=== PATIENT | female | born 1965 | race Caucasian/White ===

== ENCOUNTER → 2018-02-05 12:32 | Outpatient (CLI) | payer BC | END | disposition home or self-care (01) | LOC: D.LAB 12:32 | DX: M54.16 Radiculopathy, lumbar region (principal) ==

== ENCOUNTER → 2019-01-05 08:01 | Outpatient (CLI) | payer BC ==
[~2019-01-05 08:01] MED LIST: CLARITIN 10 MG10 MG PO; DUEXIS 800-26.1 EACH PO; ESTRACE1 MG PO; HYDROCODONE-A1 UDTA2 PO; LISINOPRIL-HCT1 EAC7 PO; LYRICA75 MG PO; OMEPRAZOLE40 MG PO; XANAX1 MG PO
[2019-01-17 11:50] VITALS: BMI 35.6
== END | disposition home or self-care (01) ==
LOC: D.HCCARDIO 08:01
PROVIDERS: ATTEND Internal Medicine Interventional Cardiology
DX: I20.9 Angina pectoris, unspecified (principal)

== ENCOUNTER → 2019-01-08 13:16 | Outpatient (CLI) | payer BC ==
--- NOTE | 2019-01-10 11:08 | EC ---
PATIENT:REINA ROMERO DATE OF SERVICE: 01/08/19 SEX: F MEDICAL RECORD: [id number] DATE OF : 65 LOCATION:D.[facility] AGE OF PATIENT: 53 ADMISSION DATE: 01/08/19 REFERRING PHYSICIAN: INTERPRETING PHYSICIAN: DRISS HONG MD ECHOCARDIOGRAM REPORT ECHO CHARGES 4 ECHO COMPLETE Date: 01/08/19 CLINICAL DIAGNOSIS: HEART MURMUR ECHOCARDIOGRAPHIC MEASUREMENTS (adult normal given) AC root (d.<3.7cm) 3.5 cm LV Septum d (<1.2 cm> 1.1 cm Valve Excursion 1.8 cm LV Septum (systole) 1.2 cm Left Atria (s.<4.0cm> 4.1 cm LVPW d(<1.2cm) 1.5 cm RV (d.<2.3cm) 3.4 cm LVPW (sytole) 1.5 cm LV diastole(<5.6CM) 5.6 cm MV E-F(>70mm/sec) cm LV systole 4.3 cm LVOT Diameter 2.1 cm MV exc.(>10mm) 1.5 cm Est.ejection fraction (50-75%) % DOPPLER: LVIT cm/sec A 94.0 cm/sec E 73.0 cm/sec LA cm/sec RVSP 25 mmHg LVOT 128 cm/sec AOP1/2T m/s Asc. Ao 151 cm/sec RVOT 72 cm/sec RA cm/sec PA 113 cm/sec AV Gradient Peak 9.14 mmHg AV Mean 4.83 mmHg AV Area 2.5 cm MV Gradient Peak 3.62 mmHg MV Mean 1.56 mmHg MV Area cm COMMENTS: Photography Spotter: 2 BARBARA LOPEZ Special Education Math Teacher: 3 Dr. Wheat TAPE# PACS Pericardial Effusion N DATE OF SERVICE: Adequate 2-D, color-flow imaging, spectral Doppler, and M-mode. No LVH. LV internal dimension was normal. Wall motion is normal. EF is greater than or equal to 55%. Aortic valve is tricuspid. No evidence of stenosis by Doppler interrogation. Left atrium is mildly dilated at 4.1 cm. Mitral valve shows no prolapse. Trace MR. Right-sided chambers are grossly normal. Trace TR. ECHOCARDIOGRAM REPORT [id number] REINA ROMERO TRANSINT:[id number] Voice Confirmation ID: [id number] DOCUMENT ID: [id number] DRISS HONG MD at 1108 CC: [id number] DICTATION DATE: 01/09/19 144 EMPLOYMENT TRAINING SPECIALIST: 01/09/19 2343 DEP CLI 01/08/19 [place] [id number] [place] [id number]
--- NOTE | 2019-01-11 13:30 | EC ---
PATIENT:REINA ROMERO DATE OF SERVICE: 01/08/19 SEX: F MEDICAL RECORD: [id number] DATE OF : 65 LOCATION:D.[facility] AGE OF PATIENT: 53 ADMISSION DATE: 01/08/19 REFERRING PHYSICIAN: INTERPRETING PHYSICIAN: DANAE RODRIGUEZ MD ECHOCARDIOGRAM REPORT ECHO CHARGES 4 ECHO COMPLETE Date: 01/08/19 CLINICAL DIAGNOSIS: HEART MURMUR ECHOCARDIOGRAPHIC MEASUREMENTS (adult normal given) AC root (d.<3.7cm) 3.5 cm LV Septum d (<1.2 cm> 1.1 cm Valve Excursion 1.8 cm LV Septum (systole) 1.2 cm Left Atria (s.<4.0cm> 4.1 cm LVPW d(<1.2cm) 1.5 cm RV (d.<2.3cm) 3.4 cm LVPW (sytole) 1.5 cm LV diastole(<5.6CM) 5.6 cm MV E-F(>70mm/sec) cm LV systole 4.3 cm LVOT Diameter 2.1 cm MV exc.(>10mm) 1.5 cm Est.ejection fraction (50-75%) % DOPPLER: LVIT cm/sec A 94.0 cm/sec E 73.0 cm/sec LA cm/sec RVSP 25 mmHg LVOT 128 cm/sec AOP1/2T m/s Asc. Ao 151 cm/sec RVOT 72 cm/sec RA cm/sec PA 113 cm/sec AV Gradient Peak 9.14 mmHg AV Mean 4.83 mmHg AV Area 2.5 cm MV Gradient Peak 3.62 mmHg MV Mean 1.56 mmHg MV Area cm COMMENTS: Hearing Therapist: 2 BARBARA LOPEZ Armored Car Guard: 3 Dr. Wheat TAPE# PACS Pericardial Effusion N DATE OF SERVICE: PROCEDURE: Echocardiogram. FINDINGS: 1. Left ventricular chamber size is within normal limits. Left ventricular systolic function is normal at 65%. 2. Left atrium is upper limits of normal at 4.0 cm. Right atrium and right ventricular chamber sizes are mildly dilated. 3. Valvular structures have normal structure and motion. ECHOCARDIOGRAM REPORT [id number] REINA ROMERO 4. Doppler interrogation reveals only trace tricuspid regurgitation, no other valvular insufficiency or stenosis. Pulmonary systolic pressure is estimated at 23 mmHg. 5. No evidence of pericardial effusion or left ventricular thrombus. TRANSINT:[id number] Voice Confirmation ID: [id number] DOCUMENT ID: [id number] DANAE RODRIGUEZ MD at 1330 CC: [id number] DICTATION DATE: 01/09/19 1205 BASKET PATCHER: 01/09/19 1315 DEP CLI 01/08/19 [facility] [address] [place] [id number]
[2019-01-17 11:50] VITALS: BMI 35.6
== END | disposition home or self-care (01) ==
LOC: D.HCCECHO 13:16
PROVIDERS: ATTEND Internal Medicine Interventional Cardiology
DX: R01.1 Cardiac murmur, unspecified (principal)

== ENCOUNTER 2019-01-17 10:53 | Outpatient (CLI) | payer MEDICARE ==
[~2019-01-17] VITALS: Ht 167.6 cm; Wt 100.0 kg
--- NOTE | ~2019-01-17 | HEMODYNAMI ---
PATIENT:REINA ROMERO MEDICAL RECORD: [id number] : 65 LOCATION:[facility] ADMISSION DATE: 01/17/19 Generatedon:01/17/201915:03 Patient name: REINA ROMERO Patient #: [id number] SSN: [id number] : 1965 Date of study: 01/17/2019 Page: Of Hemodynamic Procedure Report Patient Data Patient Demographics Procedure consent was obtained First Name: REINA Gender: Female Last Name: NICK : 1965 Middle Initial: MICHAEL Age: 53 year(s) Patient #: [id number] Race: SSN: [id number] Additional ID: [id number] Contact details Address: [address] [place] [address] m State: [place] City: [facility] Zip code: [address] Past Medical History Allergies Allergen Reaction Date Comments Reported Other allergy 01/17/2019 GUAIFENESIN/CODEINE Admission Admission Data Admission Date: 01/17/2019 Admission Time: 10:53 Arrival Date: 01/17/2019 Arrival Time: 0:00 Admit Source: Other Insurance Payor: Private health insurance [facility] #: [id number] Height (in.): 66.14 BSA: 2.09 (m2) Height (cm.): 168 BMI: 35.43 (kg/m2) Weight (lbs.): 220.46 Weight (kg.): 100 Lab Results Lab Result Date: 01/17/2019 Lab Result Time: 0:00 Biochemistry Name Units Result Min Max BUN mg/dl 18 --(---*)-- 7 18 Creatinine mg/dl 0.8 --(-*--)-- 0.6 1.3 eGFR ml/min 79.93890 *-(----)-- 90 120 NONAFRICAN CBC Name Units Result Min Max Hemoglobin g/dl 12.7 -*(----)-- 13.5 17.5 Procedure Procedure Types Cath Procedure Diagnostic Procedure [facility] w/Coron[facility] Procedure Description Procedure Date Procedure Date: 01/17/2019 Procedure Start Time: 14:48 Procedure End Time: 15:01 Procedure Staff Name Function Andrew Mike MD Performing Physician Claudia Boswell RT Monitor Nuvia Clinton RT Monitor Lupe Morley RT Scrub Zane Garcia RN Nurse Procedure Data Cath Procedure Fluoroscopy Diagnostic fluoroscopy Total fluoroscopy Time: 3 time: 3 min min Diagnostic fluoroscopy Total fluoroscopy dose: 454 dose: 454 mGy mGy Contrast Material Contrast Material Type Amount (ml) Isovue 300 82 Entry Location Entry Primary Successful Side Size Upsize Upsize Entry Closure Choi ccessful Closure Location (Fr) 1 (Fr) 2 (Fr) Remarks Device Remarks Radial Right 6 Fr Mechanical artery Short Compression Estimated blood loss: 5 ml Diagnostic catheters Device Type Used For End Catheter Placement DIAGNOSTIC Young Harris 110cm 5 Procedure Fr catheter ([id number]) Procedure Complications No complications Procedure Medications Medication Administration Route Dosage 0.9% NaCl I.V. 100 ml/hr Oxygen etCO2 Nasal cannula 2 l/min Heparin Flush Bag added to field 2 bags (1000units/500ml NS) Lidocaine 2% added to field 20 Radial Cocktail added to field 1 syringe (Verapamil 2mg/Nitro 400mcg/Heparin 1500units) Benadryl I.V. 50 mg Versed I.V. 2 mg Fentanyl I.V. 100 mcg Radial Cocktail I.A. 1 syringe (Verapamil 2mg/Nitro 400mcg/Heparin 1500units) Hemodynamics Rest BSA: 2.09 (m2) HGB: 12.7 (g/dl) O2 Consumption: Estimated: 193.7 (ml/min) O2 Con sumption indexed: Estimated:92.68 (ml/min/m) Heart Rate: 59 (bpm) Pressure Samples Time Site Value (mmHg) Purpose Heart Use Rate(bpm) 14:52 LV 104/8,10 Snapshot 73 Gradients Valve Time Site Site Mean SEP/DFP Peak To Heart Use 1 2 (mmHg) (sec/min) Peak Rate (mmHg) (bpm) Aortic 14:52 LV AO 80 Snapshots Pre Cath Intra NCS Post Cath Vital Signs Time Heart Resp SPO2 etCO2 NIBP (mmHg) Rhythm Pain Sedation Rate (ipm) (%) (mmHg) Status Level (bpm) 14:37:13 61 25 99 0 130/75(110) NSR 0 (11) 10(A) , No pain 14:41:31 64 18 97 0 130/70(101) NSR 0 (11) 10(A) , No pain 14:45:49 59 13 95 46.6 125/63(94) NSR 0 (11) 10(A) , No pain 14:50:05 61 19 99 48.1 120/63(89) NSR 0 (11) 9(A) , No pain 14:54:19 69 11 96 45.8 124/65(92) NSR 0 (11) 9(A) , No pain 14:58:33 68 14 96 45.1 114/60(87) NSR 0 (11) 9(A) , No pain Medications Time Medication Route Dose Verified Delivered Reason Notes Effectiveness by by 14:38:15 0.9% NaCl I.V. 100 Zane Zane Per ml/hr Jose Garcia physician RN RN 14:38:24 Oxygen etCO2 2 l/min Zane Zane for low 02 Nasal Lorigan Jose sats cannula RN RN 14:38:35 Heparin Flush added 2 bags Zane Zane used for Bag to Jose Garcia procedure (1000units/500ml field RN RN NS) 14:38:49 Lidocaine 2% added 20ml Zane Zane for local to vial Shahrzadigan Jose anesthetic RN RN 14:39:02 Radial Cocktail added 1 Zane Zane used for (Verapamil to syringe Shahrzadigan Shahrzadigan procedure 2mg/Nitro RN RN 400mcg/Heparin 1500units) 14:47:23 Benadryl I.V. 50 mg Zane Zane Per Jose Garcia physician RN RN 14:48:56 Versed I.V. 2 mg Zane Zane for sedation Jose Garcia RN RN 14:49:05 Fentanyl I.V. 100 mcg Zane Zane for sedation Jose Garcia RN RN 14:51:30 Radial Cocktail I.A. 1 Zane Andrew for (Verapamil syringe Shahrzadigan Rashid vasodilation 2mg/Nitro DEVAUGHN HALL 400mcg/Heparin 1500units) Procedure Log Time Note 14:24:26 Procedure Status Elective Heart Cath (OP). 14:24:29 Zane Garcia RN sent for patient. Start room use. 14:24:31 Time tracking: Regular hours (M-F 7:00 - 5:00) 14:24:36 Plan of Care:Hemodynamics will remain stable., Cardiac rhythm will remain stable., Comfort level will be maintained., Respiratory function will remain adequate., Patient/ family verbilizes understanding of procedure., Procedure tolerated without complication., Recovers from procedure without complications.. 14:24:37 Signed procedure consent form obtained from patient. 14:32:46 Warm blankets applied, and joel hugger turned on for patient comfort. 14:32:48 Correct patient and procedure confirmed by team. 14:32:50 ECG and BP/O2 sat monitors applied to patient. 14:32:57 Vital chart was started 14:33:02 Baseline sample Acquired. 14:33:09 Rhythm: sinus rhythm 14:33:34 ACC Patient presents with No angina; no symptoms CCS Anginal Class 0--No symptoms, no angina. 14:35:10 Patient received from Pre/Post Procedure Room to [facility] 1 Alert and oriented. Tansferred to table in Supine position. 14:35:31 Full Disclosure recording started 14:35:32 - 14:35:42 H&P Date Dictated: 01/17/2019 H&P Addendum completed by physician on da y of procedure. (MUST COMPLETE FOR ALL OUTPATIENTS), New H&P dictated by physician.. 14:35:49 Pre-procedure instructions explained to patient. 14:35:50 Pre-op teaching completed and patient verbalized understanding. 14:35:53 Family in waiting room. 14:35:56 Patient NPO since Midnight. 14:36:27 Patient allergic to Other allergyGUAIFENESIN/CODEINE 14:36:31 Is the patient allergic to Iodine/contrast media? No. 14:37:10 Is patient on blood thinner?No 14:37:14 Patient diabetic? No. 14:38:10 PT STATES MENOUPAUSE. 14:38:13 ----Pre-sedation anethsthesia assessment.---- 14:38:15 0.9% NaCl 100 ml/hr I.V. was administered by Zane Garcia RN; Per physician; Verbal order read back and verified. 14:38:24 Oxygen 2 l/min etCO2 Nasal cannula was administered by Zane Garcia RN; for low 02 sats; Verbal order read back and verified. 14:38:27 Previous problem with sedation/anesthesia? No ? 14:38:29 Snore? Yes 14:38:32 Sleep apnea? No 14:38:35 Heparin Flush Bag (1000units/500ml NS) 2 bags added to field was administered by Zane Garcia RN; used for procedure; Verbal order read back and verified. 14:38:35 Deviated septum? No 14:38:36 Opens mouth fully? Yes 14:38:38 Sticks out tongue? Yes 14:38:43 Airway obstruction? No ? 14:38:49 Lidocaine 2% 20ml vial added to field was administered by Zane Garcia RN; for local anesthetic; Verbal order read back and verified. 14:38:53 Dentures? Yes PARTIAL IN TIGHT 14:39:02 Radial Cocktail (Verapamil 2mg/Nitro 400mcg/Heparin 1500units) 1 syring e added to field was administered by Zane Garcia RN; used for procedure; Verbal order read back and verified. 14:39:02 Pre procedure: right dorsailis pedis pulse 1+ Palpable, but thready & weak; easily obliterated 14:39:07 Pre procedure: left dorsailis pedis pulse 1+ Palpable, but thready & weak; easily obliterated 14:39:11 Modified Tom's test Ulnar < 7 seconds 14:39:18 Patient pain scale 0/10 ?. 14:39:29 IV patent on arrival in left forearm with 0.9% NaCl at [facility]. 14:40:06 Lab Result : BUN 18 mg/dl 14:40:06 Lab Result : Creatinine 0.8 mg/dl 14:40:06 Lab Result : eGFR NONAFRICAN 79.14498 ml/min 14:40:06 Lab Result : Hemoglobin 12.7 g/dl 14:40:17 Lab results completed and on chart. 14:40:25 Risk of Mortality: .1 14:40:30 Risk of blood transfusion: 0.6 14:40:35 Risk of MAURICIO: 0.8 14:40:42 Right Radial & Right Groin area was prepped with chlora-prep and draped in sterile fashion 14:40:45 Alarms reviewed by R. N. 14:40:47 Alarms reviewed by R. N. 14:40:48 Sharps counted by scrub and verified by R.N. 14:40:49 Sharps counted by scrub and verified by R.N. 14:40:56 Use device set Radial Dx or PCI 14:40:58 ACIST Syringe (09655) opened to sterile field. 14:40:59 Medline Cath Pack ([id number]) opened to sterile field. 14:41:00 Bag Decanter (2002S) opened to sterile field. 14:41:01 ACIST Hand Control (40392) opened to sterile field. 14:41:01 ACIST Manifold (90536) opened to sterile field. 14:41:02 Tegaderm 4 x 4 (1626W) opened to sterile field. 14:41:03 MBrace Wrist Support ([id number]) opened to sterile field. 14:41:06 EMERALD Guide Wire (918-850) opened to sterile field. 14:41:07 SHEATH 6FR RAIN (9970889) opened to sterile field. 14:47:23 Benadryl 50 mg I.V. was administered by Zane Garcia RN; Per physician; Verbal order read back and verified. 14:47:41 Arrival Date: 01/17/2019 12:00:00 AM 14:47:54 Physician arrived 14:47:55 --------ALL STOP TIME OUT------ 14:47:56 Final Timeout: patient, procedure, and site verified with staff and physician. All members of the team are in agreement. 14:47:59 Right Radial & Right Groin site verified by team. 14:48:07 Fire Safety Assessment: A--An alcohol-based skin anteseptic being used preoperatively., C--Open oxygen or nitrous oxide is being used., D--An ESU, laser, or fiber-optic light is being used. 14:48:12 Physical assessment completed. ASA score P 2 - A patient with mild systemic disease as per Andrew Mike MD. 14:48:19 2) 60-89 Mildly reduced kidney function, and other findings (as for stage 1) point to kidney disease. 14:48:24 Maximum allowable contrast dose (3.7 X eGFR X 0.75)219 ml. 14:48:30 Sedation plan: IV Moderate Sedation Medication:Versed, Fentanyl 14:48:37 Procedure started. 14:48:45 Local anesthetic to right radial artery with Lidocaine 2% by Andrew Mike MD.INITIAL ACCESS ONLY 14:48:56 Versed 2 mg I.V. was administered by Zane Garcia RN; for sedation; Verbal order read back and verified. 14:49:00 A 6 Fr Short sheath was inserted into the Right Radial artery 14:49:05 Fentanyl 100 mcg I.V. was administered by Zane Garcia RN; for sedation; Verbal order read back and verified. 14:49:05 Zero performed for pressure channel P1 14:50:22 Insurance Payor : Private health insurance 14:50:32 Patient Height : 66.14 inches 14:50:38 Patient Weight : 220.46 lbs 14:50:44 Admit Source: Other 14:51:10 A DIAGNOSTIC Young Harris 110cm 5 Fr catheter ([id number]) was advanced over the wire and used for Procedure. 14:51:30 Radial Cocktail (Verapamil 2mg/Nitro 400mcg/Heparin 1500units) 1 syring e I.A. was administered by Andrew Mike MD; for vasodilation; Verbal order read back and verified. 14:51:42 LV gram done using GROSSMAN 14:52:14 Injector settings: Ml/sec: 5, Volume: 15, 14:52:54 EF : 55 % 14:53:02 LV hemodynamics recorded. 14:53:36 RCA angiography performed. 14:53:49 Injector settings: Ml/sec: 3, Volume: 5, 14:54:07 LCA angiography performed. 14:54:20 Injector settings: Ml/sec: 3, Volume: 5, 14:54:23 ACCDominant side:Right 14:56:11 Catheter removed. 14:56:21 ZEPHYR REGULAR TR BAND (362772) opened to sterile field. 14:57:15 Procedure ended.(Physican Out) 14:57:44 Sheath removed intact; hemostasis achieved with Mechanical Compression to the Right Radial artery. 14:58:03 Fluoroscopy time 03.00 minutes. 14:58:10 Flurop Dose total: 454 14:58:10 Fluoroscopy dose: 454 mGy 14:58:33 Dose Area Product 30256 mGy/cm. 14:58:43 Contrast amount:Isovue 300 82ml. 14:58:47 Maximum allowable dose exceeded? No. 14:58:48 Sharps counted by scrub and verified by R.N. 14:59:01 [place] band inflated with 8cc of air. 14:59:03 Insertion/operative site no bleeding no hematoma. 14:59:18 Post right radial artery:stable 14:59:22 Post Procedure Pulses reassessed and unchanged 14:59:31 Post procedure rhythm: unchanged. 14:59:35 Estimated blood loss: 5 ml 14:59:43 Post procedure instruction explained to patient.Patient verbalizes understanding. 14:59:44 Patient needs reinforcement of post procedure teaching. 15:00:45 Procedure and supply charges have been captured, reviewed, submitted an d are correct. 15:00:57 Procedure Complication : No complications 15:01:06 Vital chart was stopped 15:01:09 [facility] Findings: mild to moderate CAD (<70%) 15:01:15 Operative report dictated upon procedure completion. 15:01:16 See physician's report for complete and final results. 15:01:19 Report given to Pre/Post Procedure Room. 15:01:24 Patient transfered to Pre/Post Procedure Room with Stretcher. 15:01:28 Procedure ended. 15:01:28 Full Disclosure recording stopped 15:01:35 End room use (Document Last) Device Usage Item Name Manufacture Quantity Catalog Hospital Part Current Minima l Lot# / Number Charge Number Stock Stock Serial# Code ACIST Acist 1 11901 880353 854214 818150 20 Syringe Medical (58899) Systems Inc Medline Medline 1 [id number] 599710 13362 358005 5 Cath Pack ([id number]) Bag Microtek 1 685774 42773 524206 5 Decanter Medical Inc. () ACIST Hand Acist 1 03917 623078 979926 007618 5 Control Medical (97319) Systems Inc ACIST Acist 1 40862 686300 367503 614592 5 Manifold Medical (01527) Systems Inc Tegaderm 4 3M 1 1626W 329274 160188 651695 5 x 4 (1626W) MBrace Advanced 1 1400250-00 989798 70320 541080 5 Wrist Vascular Support Dynamics ([id number]) EMERALD Cardinal 1 502-455 383098 931129 762055 5 Guide Wire Health (502-455) SHEATH 6FR Cardinal 1 9754325 850533 6442497 116249 5 [facility] Health (1804473) DIAGNOSTIC Terumo 1 40-5013 941514 075837 651263 5 Young Harris 110cm 5 Fr catheter (301872) ZEPHYR Cardinal 1 714512 158526 0271573 625804 5 REGULAR TR Health BAND (946894) Signature Audit Rice Stage Time Signature Unsigned Intra-Procedure 01/17/2019 Nuvia 3:02:32 PM Oz RT(R) (CV) Intra-Procedure 01/17/2019 Zane 3:03:05 PM Jose CANTOR Intra-Procedure 01/17/2019 Andrew Seals 3:03:31 PM Jeffrey HALL [facility] [address] [place] [address]
[2019-01-17] MEDS ORDERED: LYRICA75 MG PO (11:34)
[2019-01-17] MEDS ORDERED: OMEPRAZOLE40 MG PO (11:35)
[2019-01-17] MEDS ORDERED: XANAX1 MG PO (11:35)
[2019-01-17] MEDS ORDERED: HYDROCODONE-A1 UDTA2 PO (11:35)
[2019-01-17] MEDS ORDERED: ESTRACE1 MG PO (11:36)
[2019-01-17] MEDS ORDERED: LISINOPRIL-HCT1 EAC7 PO (11:36)
[2019-01-17] MEDS ORDERED: DUEXIS 800-26.1 EACH PO (11:37)
[2019-01-17] MEDS ORDERED: CLARITIN 10 MG10 MG PO (11:37)
[2019-01-17 11:50] VITALS: BP 128/58; Ht 167.6 cm; Wt 100.0 kg
[2019-01-17 12:07] LABS: BASOPHILS 0 % (0-2); EOSINOPHILS 3.5 % (0-7); HEMATOCRIT 39.4 % (36.0-48.0); HEMOGLOBIN 12.7 g/dL (12-16); IMMATURE GRANULOCYTES 0.1 % (0-5); LYMPHOCYTES 34.6 % (15-50); MCH 28.9 pg (26.0-34.0); MCHC 32.2 g/dL (31.0-37.0); MCV 89.7 fL (80.0-100.0); MEAN PLATELET VOLUME 11.4 fL (7.4-10.4); MONOCYTES 6.8 % (2-11); PLATELET COUNT 209 10x3/uL (130-400); RBC 4.39 10x6/uL (4.00-5.40); RDW 13.3 % (11.5-14.5); WBC 6.8 10x3/uL (4.8-10.8)
[2019-01-17 13:39] LABS: ALT (SGPT) 13 U/L (10-68); CALC OSMOLALITY 283 mosm/kg (275-300); CALCIUM 8.2 mg/dL (8.5-10.1); CARBON DIOXIDE 30.9 mmol/L (21.0-32.0); CHLORIDE - SERUM 107 mmol/L (98-107); CHOLESTEROL, TOTAL 259 mg/dL (0-200); CREATININE - SERUM 0.8 mg/dL (0.6-1.3); GLUCOSE 88 mg/dL (74-106); HDL CHOLESTEROL 43 mg/dL (32-96); LDL CHOLESTEROL 180 mg/dL (0-100); LDL-HDL RATIO 4.2 ratio (1.5-3.5); POTASSIUM - SERUM 4.1 mmol/L (3.5-5.1); SODIUM 142 mmol/L (136-145); TRIGLYCERIDE 183 mg/dL (30-200); UREA NITROGEN 18 mg/dL (7-18); eGFR NON AFRICAN AMERICAN 79 mL/min (90-120)
--- NOTE | 2019-01-17 15:30 | NUR ---
SANDWICH AND PO FLUIDS SERVED, PT SITTING UP I BED, EATING. DENIES ANY C/O. Z BAND IS CDI, FINGERS WARM AND CAP REFILL IS BRISK. NSR, RATE 69, BP IS 110/56.
--- NOTE | 2019-01-17 16:06 | NUR ---
2 CC OF AIR WEANED FROM Z BAND WITH NO BLEEDING NOTED.
--- NOTE | 2019-01-17 16:17 | NUR ---
2 CC OF AIR WEANED WITH NO BLEEDING NOTED.
--- NOTE | 2019-01-17 16:43 | NUR ---
1630 ALL REMAINING AIR WEANED FROM Z BAND WITH NO BLEEDING NOTED. FINGERS WARM AND CAP REFILL IS BRISK. PT DENIES ANY C/O. VSS./
--- NOTE | 2019-01-17 17:04 | NUR ---
1650 2X2 AND TEGADERM TO RIGHT WRIST CATH SITE IS CDI, WRIST IMMOBILIZER IN PLACE. FINGERS WARM AND PULSES PALPABLE. PT IS ALERT AND DENIES ANY C/O. IV DC'D WITH CATH INTACT. DC INSTRUCTIONS REVIEWED WITH PT AND WHO VERBALIZE UNDERSTANDING. PT DRESSING FOR DC WITH ASSIST. 1700 DRESSING REMAINS CDI, RADIAL PULSE PALPABLE. PT IS ALERT AND DENIES ANY C/O. PT ESCORTED TO PRIVATE AUTO VIA WC BY NURSE WITH DRIVING HER HOME. PT HAS ALL PERSONAL BELONGINGS AND DC INSTRUCTIONS AT TIME OF DISCHARGE.
--- NOTE | 2019-01-22 13:56 | OP ---
PATIENT NAME: REINA ROMERO MEDICAL RECORD: [id number] :65 LOCATION:D.[facility] ADMISSION DATE: SURGEON: DRISS HONG MD DATE OF OPERATION: 01/17/2019 PROCEDURE: Left heart catheterization, selective coronary angiography, right radial approach. CATHETERS: [place] catheter, radial sheath. The procedure was well tolerated. The patient returned to the temple. Sheath was removed. TR band was placed. FINDINGS: Left ventriculography in 30-degree GROSSMAN view: Normal wall motion, normal systolic function. CORONARY ANATOMY: LEFT MAIN: Left main is free of disease. LAD: Free of disease in the diagonal system. CIRCUMFLEX: Free of disease in the marginal system. RIGHT CORONARY ARTERY: Dominant artery, gives rise to PDA, free of disease. IMPRESSION: Normal LV systolic function. Normal coronary anatomy. TRANSINT:[id number] Voice Confirmation ID: [id number] DOCUMENT ID: [id number] DRISS HONG MD at 1356 CC: [id number] DICTATION DATE: 01/17/19 1506 FORM SETTER HELPER: 01/17/19 2324 DEP CLI 01/17/19 [address] [id number] [place] [address]
== END 2019-01-17 17:00 | disposition home or self-care (01) ==
LOC: D.CATH 10:53
PROVIDERS: ATTEND Internal Medicine Interventional Cardiology
DX: I20.9 Angina pectoris, unspecified (principal); I10 Essential (primary) hypertension; R07.9 Chest pain, unspecified; E78.5 Hyperlipidemia, unspecified; R01.1 Cardiac murmur, unspecified; F17.200 Nicotine dependence, unspecified, uncomplicated

== ENCOUNTER → 2020-01-21 12:46 | Outpatient (CLI) | payer MEDICARE ==
[2019-01-17 11:50] VITALS: BMI 35.6
== END | disposition home or self-care (01) ==
LOC: D.MRI 12:46
PROVIDERS: ATTEND Nurse Practitioner Family
DX: M67.432 Ganglion, left wrist (principal); M67.422 Ganglion, left elbow